=== PATIENT | female | born 1950 | race Caucasian/White ===

== ENCOUNTER → 2017-03-21 | Outpatient (CLI) | payer BC ==
--- NOTE | 2017-03-21 07:48 | MM ---
Reason for exam: additional evaluation requested from prior study. Last mammogram was performed 2 years ago. History: Patient has history of breast cancer at age 55, had previous chest radiation therapy at age 54, and is nulliparous. Malignant excisional biopsy of the left breast, 2005. Radiation therapy of the left breast, 2005. Stereotactic core biopsy of the right breast, March 14, 2003. Cyst aspiration of the right breast. Excisional biopsy of the right breast. Physical Findings: Nurse did not find any significant physical abnormalities on exam. MG Diagnostic Mammo w CAD ROLF Bilateral CC and MLO view(s) were taken. Prior study comparison: March 09, 2015, bilateral MG 3d diag mammo w/cad ROLF. March 22, 2013, CAD bilateral diagnostic mammogram. The breast tissue is extremely dense which could obscure a lesion on mammography. Stable benign calcifications. Stable post operative changes in the left breast. No significant new findings when compared with previous films. These results were verbally communicated with the patient and result sheet given to the patient on 03/21/17. ASSESSMENT: Benign, BI-RAD 2 RECOMMENDATION: Follow-up diagnostic mammogram of both breasts in 1 year.
== END | disposition home or self-care (01) ==
LOC: RADMAMWWP 06:52
PROVIDERS: ATTEND Internal Medicine
DX: Z08 Encounter for follow-up examination after completed treatment for malignant neoplasm (principal); Z85.3 Personal history of malignant neoplasm of breast
CPT/HCPCS: 77066

== ENCOUNTER 2024-05-09 11:43 | Observation (INO) | payer MEDICARE ==
[2024-05-09] MEDS: HYDROmorphone 1 MG/ML 1 ML SYRINGE IVP STA (12:28)
[2024-05-09] MEDS: ONDANSETRON 4 MG/2 ML VIAL IVP STA (12:30)
[2024-05-09] MEDS: KETOROLAC 15 MG/ML 1 ML VIAL IVP STA (12:33)
[2024-05-09] MEDS: SODIUM CHLORIDE 0.9% 1,000 ML IV STA (12:34)
--- NOTE | 2024-05-09 12:38 | ED ---
Abdominal Pain HPI - General Chief Complaint: Nausea/Vomiting/Diarrhea Stated Complaint: NVD Time Seen by Provider: 05/09/24 11:51 Source: patient, family, RN notes reviewed Mode of arrival: EMS Limitations: no limitations - History of Present Illness Initial Comments: This is a 73-year-old female who presents to the emergency department for left flank pain. Patient states that for the last 4 to 5 days she has had intermittent bouts where she has not felt well with nausea, vomiting, and diarrhea. Around 4 AM last night she started to develop left flank pain that she states has since persisted and she is unable to get comfortable. She has some radiation into the abdomen with associated nausea. States that this feels like kidney stones she has had in the past. Denies any urinary symptoms. MD Complaint: abdominal pain, flank pain - Related Data Home Medications Medication Instructions Recorded Confirmed Cyanocobalamin (Vitamin B-12) 1,000 mcg PO DAILY 05/09/24 05/09/24 [Vitamin B-12] Multivitamins, Thera [Multivitamin 1 tab PO DAILY 05/09/24 05/09/24 (formulary)] Turmeric Root Extract [Turmeric] 500 mg PO DAILY 05/09/24 05/09/24 Zinc Gluconate [Zinc] 50 mg PO DAILY 05/09/24 05/09/24 Allergies Allergy/AdvReac Type Severity Reaction Status Date / Time No Known Allergies Allergy Verified 05/09/24 12:49 Review of Systems ROS Statement: Those systems with pertinent positive or pertinent negative responses have been documented in the HPI. ROS Other: All systems not noted in ROS Statement are negative. Past Medical History History of Any Multi-Drug Resistant Organisms: None Reported Additional Past Surgical History / Comment(s): Colon surgery 2002 Smoking Status: Never smoker Past Alcohol Use History: None Reported, Daily, Occasional Past Drug Use History: None Reported General Exam Limitations: no limitations General appearance: alert, in no apparent distress Head exam: Present: atraumatic, normocephalic, normal inspection Respiratory exam: Present: normal lung sounds bilaterally. Absent: respiratory distress, wheezes, rales, rhonchi, stridor Cardiovascular Exam: Present: regular rate, normal rhythm GI/Abdominal exam: Present: soft, tenderness (Left mid to lower abdomen), normal bowel sounds. Absent: distended Back exam: Present: CVA tenderness (L) Neurological exam: Present: alert, oriented X3, CN II-XII intact Psychiatric exam: Present: normal affect, normal mood Skin exam: Present: warm, dry, intact, normal color. Absent: rash Course Vital Signs 05/09/24 05/09/24 11:47 14:00 Temperature 98.5 F 97.8 F Pulse Rate 72 91 Respiratory 16 16 Rate Blood Pressure 150/84 115/67 O2 Sat by Pulse 100 94 L Oximetry Medical Decision Making - Medical Decision Making This is a 73-year-old female who presents to the emergency department for flank pain, nausea, and vomiting. Was pt. sent in by a medical professional or institution? @ -No Did you speak to anyone other than the patient for history? @ -No Did you review nursing and triage notes? @ -Yes, and I agree, it is accurate with regards to the patient's symptoms. Were old charts reviewed? @ -No Differential Diagnosis? @ -Differential Flank Pain: UTI, pyelonephritis, kidney stone, musculoskeletal, pancreatitis, cholecystitis, this is not meant to be an all-inclusive list. EKG interpreted by me (3pts min.)? @ -EKG interpreted by me demonstrating the following: Sinus rhythm. Ventricular rate 90 bpm, KS interval 146 ms, QRS duration 94 ms, QTc 420 ms. X-rays interpreted by me (1pt min.)? @ -Not obtained CT interpreted by me (1pt min.)? @ -CT scan of the abdomen and pelvis obtained. My interpretation identifies a left ureteral calculus. U/S interpreted by me (1pt. min.)? @ -Not obtained What testing was considered but not performed? (CT, X-rays, U/S, labs)? Why? @ -None What meds were considered but not given? Why? @ -None Did you discuss the management of the patient with other professionals? @ -Yes, Dr. Espana, who is agreeable to admission given the intractable symptoms and requests keeping the patient NPO. Dr. Redmond accepts the patient for admission to medicine. Did you reconcile home meds? @ -Yes Was smoking cessation discussed for >3mins.? @ -No Was critical care preformed (if so, how long)? @ -No Were there social determinants of health that impacted care today? How? (Homelessness, low income, unemployed, alcoholism, drug addiction, transportation, low edu. Level, literacy, decrease access to med. care, assisted, rehab)? @ -No Was there de-escalation of care discussed even if they declined? (Discuss DNR or withdrawal of care, Hospice)? @ -No What co-morbidities impacted this encounter? (DM, HTN, Smoking, COPD, CAD, Cancer, CVA, Hep., AIDS, mental health diagnosis, sleep apnea, morbid obesity)? @ -None Was patient admitted / discharged? @ -Admitted. Lab work unremarkable. CT scan of the abdomen and pelvis demonstrates left hydroureteronephrosis with an obstructing 5 mm calculus in the proximal left ureter with anterior left perinephric fluid suggesting calyceal rupture. Findings reviewed with the patient. She was given pain medication, but continues to be uncomfortable. She also had persistent nausea and vomiting. With any small movement she would vomit. This made it very difficult to obtain a urine sample from the patient. Given the persistent nature of her symptoms, case was discussed with urology who is agreeable to admission. Will keep patient n.p.o. [facility] Patient admitted to medicine for a right ureteral calculus with intractable pain. Urology listed as consult. Case discussed with ED attending Dr. Weiss. Undiagnosed new problem with uncertain prognosis? @ -None Drug Therapy requiring intensive monitoring for toxicity (Heparin, Nitro, Insulin, Cardizem)? @ -None Were any procedures done? @ -None Diagnosis/symptom? @ -Left ureteral calculus, intractable pain, intractable nausea and vomiting Acute, or Chronic, or Acute on Chronic? @ -Acute Uncomplicated (without systemic symptoms) or Complicated (systemic symptoms)? @ -Complicated Side effects of treatment? @ -None Exacerbation, Progression, or Severe Exacerbation] @ -Not applicable Poses a threat to life or bodily function? @ -Yes, the pain is limiting her ability to function. - Lab Data Result diagrams: 05/09/24 12:33 05/09/24 12:33 Lab Results 05/09/24 05/09/24 05/09/24 Range/Units 12:33 12:33 12:33 WBC 10.2 (3.8-10.6) k/uL RBC 4.66 (3.80-5.40) m/uL Hgb 14.2 (11.4-16.0) gm/dL Hct 43.5 (34.0-46.0) % MCV 93.4 (80.0-100.0) fL MCH 30.5 (25.0-35.0) pg MCHC 32.6 (31.0-37.0) g/dL RDW 13.1 (11.5-15.5) % Plt Count 175 (150-450) k/uL MPV 10.5 Neutrophils % 92 % Lymphocytes % 4 % Monocytes % 3 % Eosinophils % 0 % Basophils % 0 % Neutrophils # 9.3 H (1.3-7.7) k/uL Lymphocytes # 0.4 L (1.0-4.8) k/uL Monocytes # 0.3 (0-1.0) k/uL Eosinophils # 0.0 (0-0.7) k/uL Basophils # 0.0 (0-0.2) k/uL Sodium 139 (137-145) mmol/L Potassium 4.1 (3.5-5.1) mmol/L Chloride 107 (98-107) mmol/L Carbon Dioxide 19 L (22-30) mmol/L Anion Gap 13 mmol/L BUN 17 (7-17) mg/dL Creatinine 0.79 (0.52-1.04) mg/dL Est GFR (CKD-EPI)AfAm 88 (>60 ml/min/1.73 sqM) Est GFR (CKD-EPI)NonAf 76 (>60 ml/min/1.73 sqM) Glucose 125 H (74-99) mg/dL Plasma Lactic Acid Ald[place] 1.1 (0.7-2.0) mmol/L Calcium 9.2 (8.4-10.2) mg/dL Magnesium 1.9 (1.6-2.3) mg/dL Total Bilirubin 0.8 (0.2-1.3) mg/dL AST 28 (14-36) U/L ALT 25 (4-34) U/L Alkaline Phosphatase 96 (38-126) U/L Total Protein 6.6 (6.3-8.2) g/dL Albumin 4.2 (3.5-5.0) g/dL Amylase 99 (30-110) U/L Lipase 276 (23-300) U/L - Radiology Data Radiology results: report reviewed, image reviewed Disposition Clinical Impression: Left ureteral calculus, Intractable pain, Intractable nausea and vomiting Disposition: ADMITTED IP TO THIS [facility] Referrals: David Redmond MD [Primary Care Provider] - 1-2 days
--- NOTE | 2024-05-09 12:59 | CT ---
EXAMINATION TYPE: CT abdomen pelvis wo con CT DLP: 310.3 mGycm, Automated exposure control for dose reduction was used. DATE OF EXAM: 05/09/2024 12:52 PM COMPARISON: CT abdomen pelvis 06/27/2009 CLINICAL INDICATION:Female, 73 years old with history of Left flank pain; left flank pain TECHNIQUE: Standard CT of the abdomen and pelvis without IV or oral contrast. Lack of IV or oral co ntrast limits evaluation of solid and hollow organ viscera. Coronal and sagittal reformats were perfo rmed. FINDINGS: LOWER CHEST: Minimal posterior dependent subsegmental atelectasis is noted. ABDOMEN LIVER: Unremarkable noncontrast appearance. GALLBLADDER AND BILE DUCTS: Unremarkable noncontrast appearance. PANCREAS: Unremarkable noncontrast appearance. SPLEEN: Unremarkable noncontrast appearance. ADRENAL GLANDS: Unremarkable noncontrast appearance.. KIDNEYS AND URETERS: No right hydronephrosis. Couple of nonobstructing right renal calculi with large st measuring up to 2 mm. Mild left hydroureteronephrosis with a obstructing 5 mm calculus in the prox imal left ureter just past the ureteropelvic junction. There is surrounding perinephric fluid anterio rly. Couple of nonobstructing left renal calculi with largest measuring up to 4 mm. PELVIS BLADDER: Unremarkable REPRODUCTIVE: The uterus is surgically absent. ABDOMEN & PELVIS STOMACH AND BOWEL: Stomach and duodenum are unremarkable. Distal colonic diverticulosis without evide nce for acute diverticulitis. Bowel anastomosis identified within the anterior right lower abdomen fr om right-sided hemicolectomy. No focal bowel wall thickening or surrounding inflammatory changes. No evidence of bowel obstruction. PERITONEUM: No evidence of pneumoperitoneum or free fluid. VASCULATURE: Minimal atherosclerotic calcifications are present throughout the abdominal aorta and it s branches. No evidence of aortic aneurysm. Few pelvic phleboliths. MUSCULOSKELETAL: No acute osseous abnormalities LYMPH NODES: No gross evidence for lymphadenopathy. SOFT TISSUE/ABDOMINAL WALL: Unremarkable IMPRESSION: 1. Mild left hydroureteronephrosis with an obstructing 5 mL calculus within the proximal left ureter . Anterior left perinephric fluid suggesting calyceal rupture. 2. Additional nonobstructing bilateral renal calculi. 3. Colonic diverticulosis without evidence for acute diverticulitis. [facility], , 05/09/2024 12:56 PM
[2024-05-09 13:05] LABS: ALT 25 U/L (4-34); AST 28 U/L (14-36); African American GFR (CKD) 88 (>60 ml/min/1.73 sqM); Albumin 4.2 g/dL (3.5-5.0); Alkaline Phosphatase 96 U/L (38-126); Amylase 99 U/L (30-110); Anion Gap 13 mmol/L; Blood Urea Nitrogen 17 mg/dL (7-17); Calcium 9.2 mg/dL (8.4-10.2); Carbon Dioxide 19 mmol/L (22-30); Chloride 107 mmol/L (98-107); Glucose 125 mg/dL (74-99); Lipase 276 U/L (23-300); Magnesium 1.9 mg/dL (1.6-2.3); Non-African American GFR(CKD) 76 (>60 ml/min/1.73 sqM); Potassium 4.1 mmol/L (3.5-5.1); Sodium 139 mmol/L (137-145); Total Bilirubin 0.8 mg/dL (0.2-1.3); Total Protein 6.6 g/dL (6.3-8.2)
[2024-05-09 13:13] LABS: Basophils % (A) 0 %; Eosinophils % (A) 0 %; HCT 43.5 % (34.0-46.0); HGB 14.2 gm/dL (11.4-16.0); Lymphocytes # (A) 0.4 k/uL (1.0-4.8); Lymphocytes % (A) 4 %; MCH 30.5 pg (25.0-35.0); MCHC 32.6 g/dL (31.0-37.0); MCV 93.4 fL (80.0-100.0); Mean Platelet Volume 10.5; Monocytes # (A) 0.3 k/uL (0-1.0); Monocytes % (A) 3 %; Neutrophils # (A) 9.3 k/uL (1.3-7.7); Neutrophils % (A) 92 %; Platelet Count 175 k/uL (150-450); RBC 4.66 m/uL (3.80-5.40); RDW 13.1 % (11.5-15.5); WBC 10.2 k/uL (3.8-10.6)
[2024-05-09] MEDS: PROCHLORPERAZINE INJ 10 MG/2 ML VIAL IVP STA (13:56)
[2024-05-09] MEDS ORDERED: ACETAMINOPHEN TAB 325 MG TAB PO PRN (14:29)
[2024-05-09] MEDS ORDERED: KETOROLAC 15 MG/ML 1 ML VIAL IVP PRN (14:29)
[2024-05-09] MEDS ORDERED: NALOXONE 0.4 MG/ML 1 ML VIAL IV PRN (14:29)
[2024-05-09] MEDS ORDERED: ONDANSETRON 4 MG/2 ML VIAL IVP PRN (14:29)
[2024-05-09] MEDS ORDERED: IBUPROFEN 400 MG TAB PO PRN (14:29)
[2024-05-09] MEDS ORDERED: HYDROmorphone 0.5 MG/0.5 ML SYRINGE IVP PRN (14:29)
[2024-05-09] MEDS ORDERED: HYDROmorphone 1 MG/ML 1 ML SYRINGE IVP PRN (14:29)
[2024-05-09] MEDS: SODIUM CHLORIDE 0.9% 1,000 ML IV SCH (14:38)
[2024-05-09] MEDS: METOCLOPRAMIDE 5 MG/ML 2 ML VIAL IVP STA (14:40)
--- NOTE | 2024-05-09 16:47 | P.HPIM ---
History of Present Illness H&P Date: 05/09/24 Diann Velarde, Is a 73-year-old female who presented to [facility] emergency room with a chief complaint of abdominal pain nausea and vomiting She was evaluated in the emergency room vital examination on presentation revealed a temperature of 98.5 pulse 72 respiration 16 blood pressure 150/84 pulse ox 100% on room air Laboratory data revealed a white blood count of 10.2 hemoglobin 14.2 platelet count 175 BUN 17 creatinine 0.79 amylase 99 lipase 276 Testing in the emergency room revealed CT scan of the abdomen and pelvis revealed a 5 mm obstructing calculus within the proximal left ureter with left hydronephrosis Patient was admitted to medical floor for further evaluation and treatment, urology consultation was initiated Past medical history is significant for previous history of breast cancer otherwise she denies any significant past medical history, is not on any prescription medications at this time. On review of systems patient is complaining of abdominal pain nausea and vomiting otherwise she denies any complaints there is no fever or chills no headache or dizziness no chest pain no shortness of breath no cough no diarrhea no blood in the stools no burning with urination no frequency or urgency and no hematuria Past Medical History History of Any Multi-Drug Resistant Organisms: None Reported Additional Past Surgical History / Comment(s): Colon surgery 2002 Smoking Status: Never smoker Past Alcohol Use History: None Reported, Daily, Occasional Past Drug Use History: None Reported Medications and Allergies Home Medications Medication Instructions Recorded Confirmed Type Cyanocobalamin (Vitamin B-12) 1,000 mcg PO DAILY 05/09/24 05/09/24 History [Vitamin B-12] Multivitamins, Thera [Multivitamin 1 tab PO DAILY 05/09/24 05/09/24 History (formulary)] Turmeric Root Extract [Turmeric] 500 mg PO DAILY 05/09/24 05/09/24 History Zinc Gluconate [Zinc] 50 mg PO DAILY 05/09/24 05/09/24 History Allergies Allergy/AdvReac Type Severity Reaction Status Date / Time No Known Allergies Allergy Verified 05/09/24 12:49 Physical Exam Vitals: Vital Signs Temp Pulse Resp BP Pulse Ox 05/09/24 14:00 97.8 F 91 16 115/67 94 L 05/09/24 11:47 98.5 F 72 16 150/84 100 Intake and Output 05/09/24 05/09/24 05/09/24 06:59 14:59 22:59 Other: Weight 56.699 kg In general patient is alert and oriented x 3 in no distress HEENT head normocephalic and atraumatic Neck is supple no JVD no goiter no lymphadenopathy no carotid bruit Chest examination is clear to auscultation no crackles no wheezing Cardiac exam reveals regular heart sounds S1 and S2 no gallops no murmurs Abdomen is soft with moderate to severe tenderness in the left lower quadrant in the left flank area no organomegaly with normal bowel sounds Extremity exam reveals no edema no cyanosis or clubbing Neurological examination reveals no gross focal deficits Results CBC & Chem 7: 05/09/24 12:33 05/09/24 12:33 Labs: Abnormal Lab Results - Last 24 Hours (Table) 05/09/24 05/09/24 Range/Units 12:33 12:33 Neutrophils # 9.3 H (1.3-7.7) k/uL Lymphocytes # 0.4 L (1.0-4.8) k/uL Carbon Dioxide 19 L (22-30) mmol/L Glucose 125 H (74-99) mg/dL Assessment and Plan Plan: 1. 5 mm obstructing calculus in the left ureter with left hydronephrosis 2. Abdominal pain with nausea and vomiting 3. Previous history of breast cancer At this time patient was admitted to medical floor Urology consultation was requested and plan is for cystoscopy with stent placement Pain medication and symptomatic management for nausea and vomiting Obtain urinalysis to rule out infection IV fluid Will follow closely
[2024-05-09 16:53] LABS: Appearance,Urine Clear (Clear); Bilirubin,Urine Negative (Negative); Blood,Urine Large (Negative); Calcium Oxalate Crystals,Urine Rare /hpf; Color,Urine Light Yellow; Glucose,Urine (UA) Negative (Negative); Ketones,Urine 3+ (Negative); Leukocyte Esterase,Urine Negative (Negative); Mucus,Urine Rare /hpf; Nitrite,Urine Negative (Negative); Protein,Urine Negative (Negative); RBC,Urine 148 /hpf (0-5); Specific Gravity,Urine 1.018 (1.001-1.035); Squamous Epithelial Cell,Urine <1 /hpf (0-4); Urobilinogen,Urine <2.0 mg/dL (<2.0); WBC,Urine 3 /hpf (0-5)
--- NOTE | 2024-05-10 08:55 | XR ---
EXAMINATION TYPE: XR KUB DATE OF EXAM: 05/10/2024 8:41 AM CLINICAL INDICATION: Female, 73 years old with history of ureteral stone, pending surgery, TECHNIQUE: Single supine KUB image of the abdomen is obtained. COMPARISON: CT abdomen and pelvis one day earlier. FINDINGS: A few small left renal calculi are redemonstrated measuring up to 4 mm in size. Obstructing 5 mm proximal left ureter calculus is less well seen on x-ray versus CT. Overall nonobstructive bowel gas pattern. Osseous structures are intact. IMPRESSION: As above. [facility], , 05/10/2024 8:53 AM
[2024-05-10] MEDS ORDERED: NON FORMULARY DRUG (Turmeric Root Extract [Turmeric] 500 MG Tablet) PO SCH (09:00)
[2024-05-10] MEDS: PANTOPRAZOLE 40 MG/10 ML VIAL IV SCH (09:06)
[2024-05-10] MEDS: ZINC SULFATE 220 MG CAP PO SCH (09:07)
[2024-05-10] MEDS: MULTIVITAMINS, THERA 1 EACH TAB PO SCH (09:07)
[2024-05-10] MEDS: CYANOCOBALAMIN 500 MCG TAB PO SCH (09:07)
[2024-05-10 09:24] VITALS: BP 114/62; PULSE 86; RESP 17; TEMP 98.6
--- NOTE | 2024-05-10 12:14 | P.PN ---
Subjective Progress Note Date: 05/10/24 Principal diagnosis: She denies any pain this a.m., indicates pain has completely resolved. Denies any nausea or vomiting. KUB did not clearly show any ureteral stone Objective - Vital Signs Vital signs: Vital Signs Temp 98.6 F 05/10/24 07:21 Pulse 86 05/10/24 07:21 Resp 17 05/10/24 07:21 BP 114/62 05/10/24 07:21 Pulse Ox 98 05/10/24 07:21 FiO2 Intake & Output 05/09/24 05/10/24 05/10/24 18:59 06:59 18:59 Weight 56.699 kg 56.699 kg Other: Voiding Method Toilet # Voids 1 - Constitutional General appearance: Absent: no acute distress - Gastrointestinal General gastrointestinal: Present: soft. Absent: distended - Labs CBC & Chem 7: 05/09/24 12:33 05/09/24 12:33 Labs: Abnormal Lab Results - Last 24 Hours (Table) 05/09/24 05/09/24 05/09/24 Range/Units 12:33 12:33 15:56 Neutrophils # 9.3 H (1.3-7.7) k/uL Lymphocytes # 0.4 L (1.0-4.8) k/uL Carbon Dioxide 19 L (22-30) mmol/L Glucose 125 H (74-99) mg/dL Urine Ketones 3+ H (Negative) Urine Blood Large H (Negative) Urine RBC 148 H (0-5) /hpf Calcium Oxalate Crystal Rare H (None) /hpf Urine Mucus Rare H (None) /hpf Assessment and Plan Assessment: 73-year-old female with history of a 5 mm left-sided proximal ureteral stone, admitted to the hospital with left flank pain, this has completely resolved this morning. Discussed given resolution of the symptoms we will hold off on proceeding with left-sided ureteroscopy, from urology standpoint she is okay for discharge, will follow-up in our office in 1 to 2 weeks.
--- NOTE | 2024-05-10 12:42 | P.DS ---
Providers Date of admission: 05/09/24 15:05 Expected date of discharge: 05/10/24 Attending physician: David Redmond Consults: 05/09/24 14:20 Consult Physician Urgent Consulting Provider: Sean Espana Consult Reason/Comments: Left ureteral calculus with intractable pain Do you want consulting provider notified?: Yes Primary care physician: David Redmond [facility] Course: diagnosis on discharge: 1. 5 mm obstructing calculus in the left ureter with left hydronephrosis 2. Abdominal pain with nausea and vomiting 3. Previous history of breast cancer Hospital course: Diann Velarde, Is a 73-year-old female who presented to [facility] emergency room with a chief complaint of abdominal pain nausea and vomiting She was evaluated in the emergency room vital examination on presentation revealed a temperature of 98.5 pulse 72 respiration 16 blood pressure 150/84 pulse ox 100% on room air Laboratory data revealed a white blood count of 10.2 hemoglobin 14.2 platelet count 175 BUN 17 creatinine 0.79 amylase 99 lipase 276 Testing in the emergency room revealed CT scan of the abdomen and pelvis revealed a 5 mm obstructing calculus within the proximal left ureter with left hydronephrosis Patient was admitted to medical floor for further evaluation and treatment, urology consultation was initiated Past medical history is significant for previous history of breast cancer otherwise she denies any significant past medical history, is not on any prescription medications at this time. On review of systems patient is complaining of abdominal pain nausea and vomiting otherwise she denies any complaints there is no fever or chills no headache or dizziness no chest pain no shortness of breath no cough no diarrhea no blood in the stools no burning with urination no frequency or urgency and no hematuria On 05/10/2024 patient was seen and examined on the medical floor she is alert and oriented x 3 in no apparent distress, she stated that her symptoms have resolved, there is no more abdominal pain or flank pain, there is no nausea or vomiting, no fever or chills no headache or dizziness no chest pain no shortness of breath no cough, and no urinary symptoms. She was reevaluated today by urology, and decision was made to cancel any intervention at this time, and to monitor if any symptoms return, patient was cleared for discharge, she will be discharged to home today, will follow in the office as needed. Plan - Discharge Summary Discharge Rx Participant: No New Discharge Prescriptions: Continue Cyanocobalamin (Vitamin B-12) [Vitamin B-12] 1,000 mcg PO DAILY Multivitamins, Thera [Multivitamin (formulary)] 1 tab PO DAILY Turmeric Root Extract [Turmeric] 500 mg PO DAILY Zinc Gluconate [Zinc] 50 mg PO DAILY Discharge Medication List Cyanocobalamin (Vitamin B-12) [Vitamin B-12] 1,000 mcg PO DAILY 05/09/24 [History] Multivitamins, Thera [Multivitamin (formulary)] 1 tab PO DAILY 05/09/24 [History] Turmeric Root Extract [Turmeric] 500 mg PO DAILY 05/09/24 [History] Zinc Gluconate [Zinc] 50 mg PO DAILY 05/09/24 [History] Follow up Appointment(s)/Referral(s): Sean Espana MD [STAFF PHYSICIAN] - 1 Week David Redmond MD [Primary Care Provider] - 1-2 days
== END 2024-05-10 13:20 | disposition home or self-care (01) ==
LOC: EC 11:43 → 6NMEDSUR 15:05 → 1SOBS 15:42 → 4SSUR 16:57
PROVIDERS: ADMIT Internal Medicine; ATTEND Internal Medicine
DX: N13.2 Hydronephrosis with renal and ureteral calculous obstruction (principal); Z87.442 Personal history of urinary calculi; Z85.3 Personal history of malignant neoplasm of breast
CPT/HCPCS: 96361 ×2; 96375 ×2; 96374; 99285; 36415; 93005; 80053; 82150; 83605; 83690; 83735; 85025; 81001; 74018; 74176; G0378 ×4; J0780; J2765; J2405; J1171; J1885; J2470